=== PATIENT | male | born 1960 ===

== ENCOUNTER → 2022-10-07 | Outpatient (CLI) | payer MEDICAID ==
[~2022-10-07] VITALS: Ht 175.3 cm; Wt 108.0 kg
[~2022-10-07] MED LIST: ADENOSINE 90 MG/30 ML INJ IV ONE; ADENOSINE 91 MG in GIVE UN-DILUTED 0 ML IV ONE; IOHEXOL 350 MG/ML 100ML IJ ONE
[2022-10-07 14:53] VITALS: BP 103/63
== END | disposition home or self-care (01) ==
LOC: Rad HDHVI 13:06
PROVIDERS: ATTEND Internal Medicine Cardiovascular Disease
DX: R94.4 Abnormal results of kidney function studies (principal)
CPT/HCPCS: 36415; 71260; 78452; 82565; 84520; 93005; 93306; 96374; 96375; G0463; J0153